=== PATIENT | male | born 1990 | race Caucasian/White ===

== ENCOUNTER 2018-03-19 21:05 | Emergency (ER) | payer BC ==
[~2018-03-19] VITALS: Ht 180.3 cm; Wt 108.0 kg
[~2018-03-19 21:05] MED LIST: BACTRIM DS1 TAB PO; CELEXA10 MG PO; KEFLEX500 M1 PO; LORTAB5 OR; NAPROSYN500 MG OR; NAPROSYN500 MG PO; PERCOCET 5/325M1 TAB OR; PREVACID30 M1 OR; PROMETHAZINE25 MG OR; RISPERIDONE M TA PO; SILVADENE1 % EX; ULTRAM50 MG PO; [UNRECOGNIZED DRUG - REMARK]
[2018-03-19] MEDS ORDERED: PRILOSEC OTC20 MG PO (21:24)
[2018-03-19] MEDS ORDERED: WELLBUTRIN SR150 MG PO (21:24)
[2018-03-19] MEDS ORDERED: SUBOXONE1 MI2 PO (21:25)
[2018-03-19 22:15] LABS: HEMATOCRIT 40.5 % (39.0-50.0); HEMOGLOBIN 14.5 g/dl (14.0-18.0); IMMATURE GRANULOCYTES 0.3 % (0.0-5.0); MEAN CELL VOLUME 84.9 fL CALC (80.0-100.0); MEAN CORPUSCULAR HGB 30.4 pG CALC (26.0-32.0); MEAN CORPUSCULAR HGB CONC 35.8 g/L CALC (32.0-36.0); NEUT# 6.59 thou/uL (1.82-7.42); RED BLOOD COUNT 4.77 mill/uL (4.70-6.10)
[2018-03-19 22:19] LABS: URINE BILIRUBIN - DIPSTICK NEGATIVE (NEGATIVE); URINE BLOOD DIPSTICK NEGATIVE (NEGATIVE); URINE COLOR YELLOW; URINE GLUCOSE - DIPSTICK NEGATIVE (NEGATIVE); URINE KETONE NEGATIVE (NEGATIVE); URINE LEUK ESTERASE NEGATIVE (NEGATIVE); URINE NITRITE - DIPSTICK NEGATIVE (Negative); URINE PROTEIN - DIPSTICK NEGATIVE (NEG-TRACE); URINE UROBILINOGEN - DIPSTICK 0.2 E.U./dL (0.2)
[2018-03-19 22:20] LABS: URINE CLARITY CLEAR
[2018-03-19 22:25] LABS: BARBITURATES NEGATIVE (NEGATIVE); COCAINE NEGATIVE (NEGATIVE); METHADONE NEGATIVE (NEGATIVE); OXCYCODONE POSITIVE (NEGATIVE); TETRAHYDROCANNABIONOL POSITIVE (NEGATIVE); TRICYLIC ANTIDEPRESSANTS NEGATIVE (NEGATIVE)
[2018-03-19 22:32] LABS: ALBUMIN 4.7 g/dL (3.2-5.0); ALKALINE PHOSPHATASE 80 u/l (38-126); ANION GAP 15 (6-22 (CALC)); BILIRUBIN, TOTAL 0.7 mg/dL (0.0-1.4); BUN 15 mg/dL (9-20); BUN/CREATININE RATIO 22 (12-20 (CALC)); CARBON DIOXIDE 25 mmol/l (22-30); CHLORIDE 106 mmol/l (95-108); CREATININE 0.7 mg/dL (0.7-1.3); GFR > 60 ML/MIN (>=60 (CALC)); GFR FOR AFR.AMER. > 60 ML/MIN (>=60 (CALC)); MAGNESIUM 1.7 mg/dL (1.6-2.3); POTASSIUM 4.2 mmol/l (3.5-5.1); SGOT/AST 30 u/l (17-59); SODIUM 141 mmol/l (137-146); TOTAL PROTEIN 7.6 g/dL (6.3-8.2)
[2018-03-19 23:03] LABS: TSH, 3RD GENERATION 0.61 uIU/mL (0.47 - 4.68)
[2018-03-19] MEDS ORDERED: VISTARIL 50MG C50 MG PO (23:28)
[2018-03-19] MEDS ORDERED: METO50TA52 PO (23:28)
[2018-03-19 23:44] VITALS: BP 117/62
== END 2018-03-19 23:44 | disposition home or self-care (01) | DRG 880 ==
LOC: ED 21:05
PROVIDERS: Family Medicine
DX: F41.0 Panic disorder [episodic paroxysmal anxiety] (principal); I10 Essential (primary) hypertension; T42.4X6A Underdosing of benzodiazepines, initial encounter; Z91.128 Patient's intentional underdosing of medication regimen for other reason
CPT/HCPCS: J2060

== ENCOUNTER 2018-03-23 17:23 | Emergency (ER) | payer BC ==
[~2018-03-23] VITALS: Ht 180.3 cm; Wt 104.0 kg
[~2018-03-23 17:23] MED LIST changes: +METO50TA52 PO; +PRILOSEC OTC20 MG PO; +SUBOXONE1 MI2 PO; +VISTARIL 50MG C50 MG PO; +WELLBUTRIN SR150 MG PO
[2018-03-23] MEDS ORDERED: ZOLOFT25 MG PO (17:32)
[2018-03-23 17:58] LABS: HEMATOCRIT 42.4 % (39.0-50.0); HEMOGLOBIN 14.8 g/dl (14.0-18.0); IMMATURE GRANULOCYTES 0.3 % (0.0-5.0); MEAN CORPUSCULAR HGB 29.7 pG CALC (26.0-32.0); MEAN CORPUSCULAR HGB CONC 34.9 g/L CALC (32.0-36.0); NEUT# 3.79 thou/uL (1.82-7.42); RED BLOOD COUNT 4.99 mill/uL (4.70-6.10); RED CELL DISTRI WIDTH 11.9 % (11.5-15.5)
[2018-03-23 18:16] LABS: ALBUMIN 4.9 g/dL (3.2-5.0); ALKALINE PHOSPHATASE 105 u/l (38-126); ANION GAP 16 (6-22 (CALC)); BILIRUBIN, TOTAL 0.9 mg/dL (0.0-1.4); BUN 11 mg/dL (9-20); BUN/CREATININE RATIO 17 (12-20 (CALC)); CARBON DIOXIDE 28 mmol/l (22-30); CHLORIDE 102 mmol/l (95-108); CREATININE 0.6 mg/dL (0.7-1.3); GFR > 60 ML/MIN (>=60 (CALC)); GFR FOR AFR.AMER. > 60 ML/MIN (>=60 (CALC)); MAGNESIUM 1.9 mg/dL (1.6-2.3); POTASSIUM 3.8 mmol/l (3.5-5.1); SGOT/AST 33 u/l (17-59); SODIUM 141 mmol/l (137-146); TOTAL PROTEIN 8.2 g/dL (6.3-8.2)
[2018-03-23 18:27] LABS: MYOGLOBIN 31 ng/mL (0 - 121)
[2018-03-23 18:45] VITALS: BP 116/67
[2018-03-23 18:54] LABS: URINE BILIRUBIN - DIPSTICK NEGATIVE (NEGATIVE); URINE BLOOD DIPSTICK NEGATIVE (NEGATIVE); URINE COLOR YELLOW; URINE GLUCOSE - DIPSTICK NEGATIVE (NEGATIVE); URINE KETONE NEGATIVE (NEGATIVE); URINE LEUK ESTERASE NEGATIVE (NEGATIVE); URINE NITRITE - DIPSTICK NEGATIVE (Negative); URINE PH 6.5 (4.5-8.0); URINE PROTEIN - DIPSTICK NEGATIVE (NEG-TRACE); URINE SPECIFIC GRAVITY <=1.005; URINE UROBILINOGEN - DIPSTICK 0.2 E.U./dL (0.2)
[2018-03-23 18:55] LABS: URINE CLARITY CLEAR
[2018-03-23 18:58] LABS: BARBITURATES NEGATIVE (NEGATIVE); COCAINE NEGATIVE (NEGATIVE); METHADONE NEGATIVE (NEGATIVE); OXCYCODONE POSITIVE (NEGATIVE); TETRAHYDROCANNABIONOL POSITIVE (NEGATIVE); TRICYLIC ANTIDEPRESSANTS NEGATIVE (NEGATIVE)
[2018-03-23] MEDS ORDERED: METO50TA52 PO (19:16)
== END 2018-03-23 19:35 | disposition home or self-care (01) | DRG 313 ==
LOC: ED 17:23
PROVIDERS: Family Medicine
DX: R07.9 Chest pain, unspecified (principal); R00.2 Palpitations; F41.9 Anxiety disorder, unspecified

== ENCOUNTER 2019-07-13 | Emergency (ER) | payer BC ==
[~2019-07-13] MED LIST changes: +ZOLOFT25 MG PO
[2019-07-13 11:43] LABS: HEMATOCRIT 43.4 % (39.0-50.0); HEMOGLOBIN 14.8 g/dl (14.0-18.0); IMMATURE GRANULOCYTES 0.3 % (0.0-5.0); MEAN CELL VOLUME 85.4 fL CALC (80.0-100.0); MEAN CORPUSCULAR HGB 29.1 pG CALC (26.0-32.0); MEAN CORPUSCULAR HGB CONC 34.1 g/L CALC (32.0-36.0); NEUT# 4.59 thou/uL (1.82-7.42); RED BLOOD COUNT 5.08 mill/uL (4.70-6.10); RED CELL DISTRI WIDTH 11.9 % (11.5-15.5)
[2019-07-13 12:16] LABS: ALKALINE PHOSPHATASE 76 u/l (38-126); ANION GAP 19 (6-22 (CALC)); BILIRUBIN, TOTAL 0.9 mg/dL (0.0-1.4); BUN 15 mg/dL (9-20); BUN/CREATININE RATIO 19 (12-20 (CALC)); CARBON DIOXIDE 23 mmol/l (22-30); CHLORIDE 100 mmol/l (95-108); CREATININE 0.8 mg/dL (0.7-1.3); GFR > 60 ML/MIN (>=60 (CALC)); GFR FOR AFR.AMER. > 60 ML/MIN (>=60 (CALC)); POTASSIUM 3.6 mmol/l (3.5-5.1); SGOT/AST 34 u/l (17-59); SODIUM 138 mmol/l (137-146); TOTAL PROTEIN 8.2 g/dL (6.3-8.2)
[2019-07-13 12:25] LABS: ACT PARTIAL THROMBO TIME 25.4 SECONDS (20.0-32.5); D-DIMER 0.17 mg/L (0.19-0.60); PROTHROMBIN TIME 10.2 SECONDS (9.0-12.5)
[2019-07-13 12:28] LABS: MYOGLOBIN 24 ng/mL (0 - 121)
[2019-07-13] MEDS ORDERED: METOPROL TAR25 MG PO (12:30)
[2019-07-13 13:16] LABS: URINE BILIRUBIN - DIPSTICK NEGATIVE (NEGATIVE); URINE BLOOD DIPSTICK NEGATIVE (NEGATIVE); URINE COLOR YELLOW; URINE GLUCOSE - DIPSTICK NEGATIVE (NEGATIVE); URINE KETONE NEGATIVE (NEGATIVE); URINE LEUK ESTERASE NEGATIVE (NEGATIVE); URINE NITRITE - DIPSTICK NEGATIVE (Negative); URINE PROTEIN - DIPSTICK NEGATIVE (NEG-TRACE); URINE UROBILINOGEN - DIPSTICK 0.2 E.U./dL (0.2)
[2019-07-13 13:24] LABS: COCAINE NEGATIVE (NEGATIVE); TETRAHYDROCANNABIONOL POSITIVE (NEGATIVE)
[2019-07-13 13:25] LABS: BARBITURATES NEGATIVE (NEGATIVE); METHADONE NEGATIVE (NEGATIVE); OXCYCODONE POSITIVE (NEGATIVE); TRICYLIC ANTIDEPRESSANTS NEGATIVE (NEGATIVE)
[2019-07-13] MEDS ORDERED: TOPROL XL50 MG PO (13:53)
== END 2019-07-13 14:13 | disposition home or self-care (01) | DRG 310 ==
PROVIDERS: Family Medicine
DX: R00.2 Palpitations (principal); I10 Essential (primary) hypertension

== ENCOUNTER 2022-11-12 06:29 | Day surgery (SDC) | payer BC ==
[~2022-11-12] VITALS: Ht 177.8 cm; Wt 74.8 kg
[~2022-11-12 06:29] MED LIST changes: +ADDERALL20 MG PO; +ALPRAZOLAM1 MG PO; +LOPRESSOR 550 MG/TAB PO; +METOPROL TAR25 MG PO; +MIRALAX17 GM PO; +NEURONTIN100 MG PO; +PEPCID20 MG PO; +PROTONIX20 M1 PO; +SUBOXONE1 MI1 SL; +TIZANIDINE HYDRO2 M1 PO; +TOPROL XL50 MG PO
[2022-11-12 08:27] VITALS: BP 117/77
== END 2022-11-12 08:15 | disposition home or self-care (01) | DRG 392 ==
LOC: ENDO 06:29 → ORM 12:45
PROVIDERS: ATTEND Surgery
PROC: 0DB68ZX Excision of Stomach, Via Natural or Artificial Opening Endoscopic, Diagnostic (ICD-10-PCS; principal; 2022-11-12)
PROC: 0DB58ZX Excision of Esophagus, Via Natural or Artificial Opening Endoscopic, Diagnostic (ICD-10-PCS; 2022-11-12)
PROC: 0DBL8ZX Excision of Transverse Colon, Via Natural or Artificial Opening Endoscopic, Diagnostic (ICD-10-PCS; 2022-11-12)
DX: K21.00 Gastro-esophageal reflux disease with esophagitis, without bleeding (principal); K29.50 Unspecified chronic gastritis without bleeding; K44.9 Diaphragmatic hernia without obstruction or gangrene; D12.3 Benign neoplasm of transverse colon; K64.8 Other hemorrhoids; K59.09 Other constipation; I10 Essential (primary) hypertension; Z80.9 Family history of malignant neoplasm, unspecified; Z79.899 Other long term (current) drug therapy

== ENCOUNTER 2023-06-11 21:37 | Emergency (ER) | payer BC ==
[~2023-06-11] VITALS: Ht 177.8 cm; Wt 79.5 kg
[2023-06-11] VITALS (8 sets, daily range): BP systolic 102–120; BP diastolic 68–84
[2023-06-12] VITALS (13 sets, daily range): BP systolic 83–112; BP diastolic 43–75
[2023-06-12 00:11] LABS: BASO% 0.7 % (0-3); EOS% 1.3 % (0-8); HEMATOCRIT 41.8 % (39.0-50.0); HEMOGLOBIN 14.4 g/dl (14.0-18.0); IMMATURE GRANULOCYTES 0.2 % (0.0-5.0); LYMPH% 22.5 % (15-41); MEAN CELL VOLUME 88.4 fL CALC (80.0-100.0); MEAN CORPUSCULAR HGB 30.4 pG CALC (26.0-32.0); MEAN CORPUSCULAR HGB CONC 34.4 g/dL CAL (32.0-36.0); MONO% 8.1 % (2-13); NEUT# 4.01 thou/uL (1.82-7.42); NEUT% 67.2 % (42-76); RED BLOOD COUNT 4.73 mill/uL (4.70-6.10); RED CELL DISTRI WIDTH 11.7 % (11.5-15.5)
[2023-06-12 00:21] LABS: ALBUMIN 4.7 g/dL (3.2-5.0); ALKALINE PHOSPHATASE 69 u/l (38-126); BILIRUBIN, TOTAL 0.9 mg/dL (0.2-1.3); BUN 11 mg/dL (9-20); BUN/CREATININE RATIO 14 (12-20 (CALC)); CHLORIDE 102 mmol/l (95-108); CREATININE 0.8 mg/dL (0.7-1.3); ETHYL ALCOHOL 0 mg/dl (0-30); GFR FOR AFR.AMER. > 60 ML/MIN (>=60 (CALC)); GFR OTHER RACES > 60 ML/MIN (>=60 (CALC)); POTASSIUM 4.1 mmol/l (3.5-5.1); SGOT/AST 29 u/l (17-59); SODIUM 139 mmol/l (137-146)
[2023-06-12 00:22] LABS: ANION GAP 11 (6-22 (CALC)); CARBON DIOXIDE 30 mmol/l (22-30)
[2023-06-12 01:03] LABS: URINE BILIRUBIN - DIPSTICK Negative (NEGATIVE); URINE BLOOD DIPSTICK Negative (NEGATIVE); URINE GLUCOSE - DIPSTICK Negative (NEGATIVE); URINE KETONE Negative (NEGATIVE); URINE LEUK ESTERASE Negative (NEGATIVE); URINE NITRITE - DIPSTICK Negative (Negative); URINE PROTEIN - DIPSTICK Negative (NEG-TRACE); URINE SPECIFIC GRAVITY >=1.030; URINE UROBILINOGEN - DIPSTICK 0.2 E.U./dL (0.2)
[2023-06-12 01:08] LABS: URINE COLOR Yellow
[2023-06-12] MEDS ORDERED: OXYCODONE5 M1 PO (01:37)
== END 2023-06-12 02:15 | disposition home or self-care (01) | DRG 918 ==
LOC: ED 21:37
PROVIDERS: Family Medicine
DX: T42.4X1A Poisoning by benzodiazepines, accidental (unintentional), initial encounter (principal); T40.2X1A Poisoning by other opioids, accidental (unintentional), initial encounter; R40.4 Transient alteration of awareness; I10 Essential (primary) hypertension; F41.9 Anxiety disorder, unspecified